=== PATIENT | male | born 1995 | race Caucasian/White ===

== ENCOUNTER 2024-10-29 19:08 | Emergency (ER) | payer OTHER, SELFPAY ==
[2024-10-29 19:10] VITALS: BP 140/85
[2024-10-29] MEDS: MOTRIN 600 MG PO (19:20)
[2024-10-29 19:26] LABS: % Basophils 0.2 % (0-2); % Immature Granulocytes 0.6 % (0-0.5); % Lymphocytes 8.4 % (20.5-51.1); % Monocytes 7.3 % (1.7-9.3); % Neutrophils 83.5 % (42.2-75.2); Absolute Immature Granulocytes 0.1 10^3/uL (0-0.05); Absolute Lymphocytes 1.2 10^3/uL (1.2-3.4); Absolute Monocytes 1.1 10^3/uL (0.1-0.6); Hematocrit 45.6 % (39.0-52.0); Mean Corp Hgb Conc. 35.1 g/dL (33.0-37.0); Mean Corpuscular Hgb 27.5 pg (27.0-31.0); Mean Corpuscular Volume 78.4 fL (80.0-94.0); Mean Platelet Volume 9.5 fL (7.4-10.4); Nucleated Red Blood Cells % 0 % (-); Platelet Count 293 10^3/uL (130-400); Red Blood Cell Count 5.82 10^6/uL (4.70-6.10); Red Cell Dist. Width 13.2 % (11.5-14.5); White Blood Cell Count 14.3 10^3/uL (4.8-10.8)
[2024-10-29 19:43] LABS: COVID-19 Antigen Negative (Negative)
[2024-10-29 19:51] LABS: ALT (SGPT) 31 U/L (0-50); AST (SGOT) 28 U/L (17-59); Albumin 4.9 g/dl (3.5-5.0); Alkaline Phosphatase 53 U/L (38-126); Blood Urea Nitrogen 14 mg/dl (9-20); Calcium 9.7 mg/dl (8.4-10.2); Carbon Dioxide 21 mmol/L (22-30); Chloride 110 mmol/L (98-107); Creatine Phosphokinase 196 U/L (55-170); Glucose 105 mg/dl (70-99); Potassium 4.1 mmol/L (3.5-5.1); Sodium 140 mmol/L (135-145); Total Bilirubin 0.8 mg/dl (0.2-1.3); Total Protein 8.5 g/dl (6.3-8.2); eGFR > 60.00
[2024-10-29 22:09] VITALS: BP 133/84
[2024-10-29 22:43] VITALS: BP 139/83
[2024-10-29 22:45] VITALS: BMI 33.2
[2024-10-29 23:00] VITALS: BP 138/90
--- NOTE | 2024-10-29 23:55 | ED.GENMED ---
History of Present Illness
General
Chief Complaint: Fever
Source: patient
Exam Limitations: none
Time Seen by Provider: 10/29/24 23:55
Nursing documentation reviewed up to this point in time: agreed with
History of Present Illness
History of Present Illness:
Note:
CHIEF COMPLAINT(S)
Fever, diffuse body aches.
HISTORY OF PRESENT ILLNESS
The patient is a 29-year-old male presenting with a past medical history of diverticulitis, GERD, who presents to the emergency department today with concerns of fever, nausea, and diffuse body aches that began today. The patient describes muscle
pain including headache, back pain, and leg pain. There is no cough, but he reports that his balance feels off. The patient describes radiating pain from his quads to his mid-back with each step. The patient reports that he was working out in the
heat earlier today. He denies neck pain but reports photophobia and a headache located primarily behind the eyes and forehead. The headache has persisted for a few hours. He has no abdominal pain. He has no vomiting. He has not taken anything
for his pain. He was seen by urgent care was sent to the emergency department for further evaluation. Patient denies dysuria, hematuria, increased urinary frequency. He states that he had a episode of heartburn earlier lasting a few seconds which
resolved but denies any chest pain or history of IV drug use. Patient denies any sick contacts.
ADDITIONAL HISTORY OBTAINED FROM SOURCES OTHER THAN THE PATIENT
According to the urgent care note, patient was sent to the emergency department out of concern for possible meningitis
PHYSICAL EXAM
Nursing notes reviewed and vital signs reviewed.
General: Patient is well appearing and in no acute distress; non-toxic
Skin: Warm and dry, no rashes or lesions
Head: Normocephalic, atraumatic
Eyes: Sclera non-icteric. EOMs intact.
Cardiac: Regular rate and rhythm, no murmurs
Peripheral Vascular: No lower extremity swelling or edema
Pulm: Normal respiratory effort, no wheezes, rales, rhonchi
Abdomen: No abdominal tenderness to palpation
Neuro: CN II-XII intact, no focal neurologic deficits. No meningismus.
Psychiatric: Appropriate mood and affect.
PLAN
Administer intravenous fluids to address dehydration.
Consider a CT scan of the head to rule out any intracranial causes of fever.
CBC, CMP, CPK, urinalysis, chest x-ray
LP shared decision making
DIFFERENTIAL DIAGNOSIS
The Differential Diagnosis includes, in no particular order and is not limited to:
- Viral infection
- Meningitis (bacterial or viral)
- Dehydration
- Influenza
- COVID-19
- Migraine
- Sinusitis
- Upper respiratory infection
- Musculoskeletal pain
- Tension headache
REVIEW OF PRIOR RECORDS
Reviewed discharge summary from 03/26/23, patient seen for sigmoid colectomy secondary to diverticulitis
UPDATE
Patient feels much improved with IV fluids, Toradol, Reglan, and Benadryl. His headache is minimal.
MDM/DISPOSITION
The patient is a 29-year-old male presenting with a past medical history of diverticulitis, GERD, who presents to the emergency department today with concerns of fever and diffuse body aches that began today. His symptoms started earlier this
morning. He was initially evaluated by an urgent care facility however he was sent to the ER because there was concern for possible meningitis. Patient is up-to-date on his vaccinations. He has no rash. On my physical exam, he is well-appearing
in no acute distress. He is febrile but he has no abdominal tenderness and his lungs are clear. He has no meningismus. He went for CAT scan which shows no evidence of acute intracranial abnormality. His blood work reveals a leukocytosis and his
CPK is mildly elevated but his blood work is otherwise unremarkable. Her his urinalysis is not concerning for infection especially with the lack of urinary symptoms. Highly doubt meningitis, suspect acute viral syndrome. Discussed case with ER
attending Dr. King. Discussed lumbar puncture with patient and family to evaluate for possible viral meningitis or other causes of fever. Patient reports he is feeling well and would rather follow-up with his primary with the schedule
appointment he has this week. I think this is reasonable considering his neurologic exam is unremarkable he has no neck stiffness, and he feels a lot better after migraine cocktail and IV fluids. Patient stable for discharge. Discussed strict
return precautions.
Past History
Past History
ED Past Medical History: None
ED Past Surgical History: Other (Abdominal surgery as a baby)
Social History
Tobacco: Smoker
Review of Systems
Review of Systems
All Other Systems: ROS reviewed and negative except as documented in HPI and ROS
Phy Exam
Physical Exam
Physical Exam:
see hpi
Sepsis
Sepsis Screening
Sepsis Assessment: Sepsis Ruled Out
Sepsis Screen
Sepsis Screen: Sepsis Ruled Out
Date: 10/30/24
Time: 07:41
Course
Orders/Labs/Results
Orders:
Orders
10/29/24 19:17
Ibuprofen [Motrin] 600 mg .ROUTE .STK-MED ONE
10/29/24 19:19
Add On- LAB Urgent
Tests Added?: creatinine kinase
COVID-19 Antigen Urgent
Source: Nasal Swab
Influenza A+B Rapid Molecular Urgent
JUAN Source: Nasal Swab
Specimen Description:
Ibuprofen [Motrin] 600 mg PO NOW STA
10/29/24 19:20
Complete Blood Count/With Diff Urgent
Comprehensive Metabolic Panel Urgent
Creatine Phosphokinase Urgent
Comment: ADDON
10/29/24 20:15
CR Chest - 2 Views Urgent
Comment:
Reason For Exam: fever
10/29/24 22:59
Urinalysis Reflex To Culture Urgent
Date Specimen was Collected: 10/29/24
Time Specimen was Collected: 23:00
10/30/24 00:09
0.9% Sodium Chloride 1000 ml [Nss] 1,000 ml IV BOLUS
Diphenhydramine [Benadryl] 12.5 mg IV NOW STA
Ketorolac [Toradol] 15 mg IV NOW STA
Metoclopramide [Reglan] 10 mg IV NOW STA
10/30/24 00:10
CT Head W/o Iv Contrast Urgent
Comment:
Reason For Exam: frontal headache, photophobia
10/30/24 00:39
Urine Microscopic Reflex Cult Urgent
10/30/24 02:33
Blood Culture Q30M
JUAN Source: Blood/Venous
Specimen Description:
10/30/24 03:10
Blood Culture Q30M
JUAN Source: Blood/Venous
Specimen Description:
Abnormal Lab Results
10/29/24 10/30/24
19:20 00:39
WBC 14.3 H 10^3/uL
(4.8-10.8)
MCV 78.4 L fL
(80.0-94.0)
Abs Immat Gran (auto) 0.1 H 10^3/uL
(0-0.05)
Absolute Neuts (auto) 12.0 H 10^3/uL
(1.4-6.5)
Absolute Monos (auto) 1.1 H 10^3/uL
(0.1-0.6)
Immature Gran % 0.6 H %
(0-0.5)
Neutrophils % 83.5 H %
(42.2-75.2)
Lymphocytes % 8.4 L %
(20.5-51.1)
Chloride 110 H mmol/L
(98-107)
Carbon Dioxide 21 L mmol/L
(22-30)
Glucose 105 H mg/dl
(70-99)
Creatine Kinase 196 H U/L
(55-170)
Total Protein 8.5 H g/dl
(6.3-8.2)
Urine Ketones 2+ A
(Negative)
Ur Occult Blood Reflex 1+ A
(Negative)
Urine RBC 3-6 A /HPF
(0-2)
Urine Albumin (Reflex) 2+ A
(Neg - Trace)
10/29/24 19:20
10/29/24 19:20
Vital Signs
Temp: 97.6 F
Initial and Last Documented VS:
Initial Vital Signs
Temp Pulse Resp BP Pulse Ox
102.3 F H 118 18 140/85 99
10/29/24 19:10 10/29/24 19:10 10/29/24 19:10 10/29/24 19:10 10/29/24 19:10
Last Documented Vital Signs
Temp Pulse Resp BP Pulse Ox
97.6 F 87 16 145/88 98
10/30/24 02:27 10/29/24 22:09 10/29/24 22:09 10/30/24 00:00 10/30/24 00:15
*Pulse Oximetry
SaO2: 98
Oxygen Mode of Delivery: Room air
Patient hypoxic: no
*Critical Care Note
Total Time (30-74mins, 75-104mins- exclusive of procedures): Not Applicable
ED Attending Note
-
Portions of this chart may have been created with voice recognition software.� Occasional wrong word or��sound alike� substitutions may have occurred due to the inherent limitations of voice recognition software.
Discharge Plan
Departure
Patient Disposition: Home (Routine Discharge)
Date of Disposition: 10/30/24
Time of Disposition: 02:34
Patient with high blood pressure during this ER visit?: Yes
Condition: Good
Discharge Problem:
Fever, Acute viral syndrome
Instructions: Fever, Adult (DC), Viral Syndrome (DC), BLOOD PRESSURE
Prescriptions:
No Action
acetaminophen [acetaminophen] 325 mg tablet
650 mg PO Q4HPRN PRN (Reason: mild pain) Qty: 1 0RF
ibuprofen 200 mg tablet
400 - 600 mg PO Q6HPRN PRN (Reason: moderate pain) Qty: 1 0RF
oxycodone 5 mg tablet
5 mg PO Q4HPRN PRN (Reason: breakthrough/severe pain) Qty: 15 0RF
Referrals:
Gatito Griffin MD [Family Provider, [facility]]
Stand Alone Forms: Return to Work
Activity Restrictions/Additional Instructions:
Please follow-up with your primary care provider with your scheduled appointment this week.
PLEASE RETURN EMERGENCY DEPARTMENT SHOULD YOU DEVELOP ACUTE WORSENING OF YOUR SYMPTOMS, CHEST PAIN, SHORTNESS OF BREATH, DIZZINESS, LIGHTHEADEDNESS, INTRACTABLE NAUSEA OR VOMITING, INABILITY AMBULATE, OR ANY OTHER SIGNS OR SYMPTOMS WORRISOME TO YOU.
Interventions
Interventions:
*Risk Screen - Suicide Last Done: 10/29/24 19:10
*General Assessment Last Done: 10/29/24 19:10
*Neglect/Abuse Screening Last Done: 10/29/24 19:10
*ED- Fall Risk Assessment Last Done: 10/29/24 22:52
*ED COVID-19 Vaccine History Last Done: 10/29/24 22:52
*Nursing Disposition Last Done: 10/30/24 03:20
ED- Neurological Assessment Last Done: 10/29/24 22:52
ED-Skin Assessment Last Done: 10/29/24 22:52
Discharge Date and Time
Discharge Date/Time: 10/30/24 03:22
Print Language: [place]
[2024-10-30] VITALS: BP 145/88
[2024-10-30] MEDS: NSS 1000 IV (00:33)
[2024-10-30] MEDS: BENADRYL 12.5 MG IV (00:34)
[2024-10-30] MEDS: REGLAN 10 MG IV (00:35)
[2024-10-30] MEDS: TORADOL 15 MG IV (00:35)
[2024-10-30 01:06] LABS: Urine Albumin 2+ (Neg - Trace); Urine Bilirubin Negative (Negative); Urine Character Clear (Clear); Urine Color Amber; Urine Glucose Negative (Negative); Urine Ketone 2+ (Negative); Urine Leukocyte Negative (Negative); Urine Nitrite Negative (Negative); Urine Occult Blood 1+ (Negative); Urine Urobilinogen Negative (Neg - 1+)
[2024-10-30 01:16] LABS: Urine White Cell None Seen /HPF (0-5)
== END 2024-10-30 03:22 | disposition home or self-care (01) ==
LOC: EMR 19:08
PROVIDERS: Emergency Medicine; EMERGENCY PHYSICIAN Emergency Medicine; FAMILY PHYSICIAN Family Medicine
DX: B34.9 Viral infection, unspecified (principal); R51.9 Headache, unspecified; E86.0 Dehydration; F17.200 Nicotine dependence, unspecified, uncomplicated; Z11.52 Encounter for screening for COVID-19
CPT/HCPCS: 96374; 96375; 96361; 99284; 70450; 71046; 80053; 81003; 81015; 82550; 85025; 87040; 87502; 87811